=== PATIENT | female | born 1940 | race Caucasian/White ===

== ENCOUNTER 2023-01-19 18:35 | Emergency (ER) | payer MEDICARE ==
[~2023-01-19] VITALS: Ht 147.3 cm; Wt 49.0 kg
[~2023-01-19 18:35] MED LIST: AMARYL2 MG PO; ASPIRIN CHEWABL81 M1 PO; AZOPT10 ML OPH; CEPHALEXIN500 M1 PO; DUREZOL 5 ML5 ML OU; Glimepiride1 MG PO; LIPITOR40 MG PO; LOPRESSOR25 MG PO; LOSARTAN POTASS1 TA1 PO; MECLIZINE HCL25 M2 PO; METFORMIN500 MG PO; METOPROLOL TART50 M1 PO; MOTRIN 600 MG E4 TAB PO; MYRBETRIQ25 M1 PO; NITROGLYCERIN0.4 MG SL; OMEPRAZOLE40 MG PO; SERTRALINE HYDR25 MG PO; SILVADENE,SSD C50 GM T
[2023-01-19] MEDS ORDERED: PROVENTIL HFA6.7 GM PO (19:45)
[2023-01-19] MEDS ORDERED: VIBRA-TAB100 MG PO (19:45)
[2023-01-19] MEDS ORDERED: GENTACIDIN5 ML NAS (19:45)
== END 2023-01-19 20:08 | disposition home or self-care (01) ==
LOC: ED 18:35
DX: H10.9 Unspecified conjunctivitis (principal); J40 Bronchitis, not specified as acute or chronic; Z88.6 Allergy status to analgesic agent; Z79.899 Other long term (current) drug therapy; Z90.49 Acquired absence of other specified parts of digestive tract; Z90.710 Acquired absence of both cervix and uterus